=== PATIENT | male | born 1965 | race Caucasian/White ===

== ENCOUNTER 2017-03-23 14:55 | Emergency (ER) | payer MEDICAID ==
[~2017-03-23] VITALS: Ht 177.8 cm; Wt 81.6 kg
[~2017-03-23 14:55] MED LIST: AMI200T PO; ASPI81CH43 PO; BEN10T PO; BUME1TAB PO; CAR3125T PO; CLOP75TA28 PO; DIG0125T PO; GLIP-218 PO
[2017-03-23 15:44] LABS: Basophils # (auto) 0.1 uL; Basophils % (auto) 0.8 % (0.0-2.0); Eosinophils # (auto) 0.2 uL; Eosinophils % (auto) 1.8 % (0.0-7.0); Hematocrit 38.6 % (41.0-53.0); Hemoglobin 12.9 g/dL (13.5-17.5); Lymphocytes # (auto) 1.7 uL; Mean Corpuscular Hemoglobin 31.6 pg (28.0-32.0); Mean Corpuscular Hgb Conc. 33.5 g/dL (32.0-36.0); Mean Corpuscular Volume 94.2 fL (80.0-100.0); Mean Platelet Volume 7.6 fL (6.9-10.8); Monocytes # (auto) 0.8 uL; Monocytes % (auto) 8.6 % (0.0-12.0); Neutrophils # (auto) 6.7 uL; Neutrophils % (auto) 70.8 % (37.0-80.0); Platelet Count (auto) 205 10^3/uL (140-450); Red Cell Distribution Width 13.7 % (11.8-14.3); White Blood Cell 9.4 10^3/uL (4.4-10.8)
[2017-03-23 16:06] LABS: Albumin 2.4 g/dL (3.4-5.0); BUN/Creatinine Ratio 26.6; Bilirubin, Total 0.7 mg/dL (0.2-1.0); Calcium 8.5 mg/dL (8.5-10.1); Magnesium 2.3 mg/dL (1.6-2.6); Potassium 4.9 mmol/L (3.5-5.1); Total Protein 6.3 g/dL (6.4-8.2)
[2017-03-23 17:30] VITALS: BP 137/77
[2017-03-23 18:11] LABS: Urine Bilirubin Negative (Negative); Urine Blood 1+ /uL (Negative); Urine Color Yellow (Yellow); Urine Glucose Normal (Normal); Urine Ketone Negative (Negative); Urine Nitrite Negative (Negative); Urine RBC 6 /hpf (0 - 3); Urine Squamous Epithelial Cell FEW /hpf (<5); Urine pH 6.5 (5.0-8.0)
== END 2017-03-23 17:42 | disposition home or self-care (01) ==
LOC: EDBD 14:55 → ER 15:05
DX: E43 Unspecified severe protein-calorie malnutrition (principal); B19.9 Unspecified viral hepatitis without hepatic coma; R33.9 Retention of urine, unspecified; I48.91 Unspecified atrial fibrillation; I25.10 Atherosclerotic heart disease of native coronary artery without angina pectoris; I11.0 Hypertensive heart disease with heart failure; I50.9 Heart failure, unspecified; E78.5 Hyperlipidemia, unspecified; E11.9 Type 2 diabetes mellitus without complications; I42.0 Dilated cardiomyopathy; F17.210 Nicotine dependence, cigarettes, uncomplicated; Z79.82 Long term (current) use of aspirin; Z98.61 Coronary angioplasty status
CPT/HCPCS: 36415; 51702; 71020; 74176; 80053; 81001; 83735; 84484; 85025; 93005

== ENCOUNTER 2017-03-25 10:47 | Inpatient (IN) | payer MEDICAID ==
[~2017-03-25] VITALS: Ht 182.9 cm; Wt 88.4 kg
[2017-03-25 11:18] LABS: Urine WBC None Seen /hpf (0 - 3)
[2017-03-25 11:25] LABS: Basophils # (auto) 0 uL; Basophils % (auto) 0.6 % (0.0-2.0); Eosinophils # (auto) 0 uL; Eosinophils % (auto) 0.7 % (0.0-7.0); Hematocrit 37.8 % (41.0-53.0); Hemoglobin 12.5 g/dL (13.5-17.5); Lymphocytes # (auto) 1.1 uL; Lymphocytes % (auto) 16.2 % (10.0-50.0); Mean Corpuscular Hemoglobin 31.3 pg (28.0-32.0); Mean Corpuscular Hgb Conc. 33.1 g/dL (32.0-36.0); Mean Corpuscular Volume 94.5 fL (80.0-100.0); Monocytes # (auto) 0.5 uL; Monocytes % (auto) 7.1 % (0.0-12.0); Neutrophils # (auto) 5.2 uL; Neutrophils % (auto) 75.4 % (37.0-80.0); Nucleated Red Blood Cells % 0.1 %; Platelet Count (auto) 236 10^3/uL (140-450); Red Cell Distribution Width 13.8 % (11.8-14.3); White Blood Cell 6.9 10^3/uL (4.4-10.8)
[2017-03-25 11:32] LABS: Urine Bacteria NONE SEEN /hpf (None Seen); Urine Blood 3+ /uL (Negative); Urine Mucus FEW (None Seen); Urine Specific Gravity 1.025 (1.001-1.035)
[2017-03-25 12:28] LABS: Albumin 2.3 g/dL (3.4-5.0); BUN/Creatinine Ratio 28.3; Bilirubin, Total 0.8 mg/dL (0.2-1.0); Calcium 8.1 mg/dL (8.5-10.1); Potassium 4.6 mmol/L (3.5-5.1); Total Protein 6.3 g/dL (6.4-8.2)
[2017-03-25] MEDS ORDERED: SODIUM CHLORIDE 0.9% 1,000 ML IV ONE (15:42)
[2017-03-25] MEDS ORDERED: MORPHINE SULFATE 10 MG/ML INJ 1ML SDV IV ONE (15:45)
[2017-03-25] MEDS ORDERED: FUROSEMIDE 20 MG/2 ML VIAL IV ONE (15:45)
[2017-03-25 16:57] LABS: INR 1.09 (0.9-1.15); Partial Thromboplastin Time 26.1 sec (22.64-33.71); Prothrombin Time 11.9 sec (9.37-12.3)
[2017-03-25] MEDS ORDERED: cefTRIAXone 1GM/50ML D5W 50 ML IV ONE ×2 (18:00→18:15)
[2017-03-25] MEDS ORDERED: ACETAMINOPHEN 500 MG TAB PO PRN (18:15)
[2017-03-25] MEDS ORDERED: NITROGLYCERIN 0.4 MG SL TAB SL PRN (18:15)
[2017-03-25] MEDS ORDERED: HYDROcodone-ACET 5/325MG TAB PO PRN (18:15)
[2017-03-25] MEDS ORDERED: PROMETHAZINE HCL 25 MG/ML 1ML IV PRN (18:15)
[2017-03-25] MEDS ORDERED: LORazepam 0.5 MG TAB PO PRN (18:15)
[2017-03-25] MEDS ORDERED: MORPHINE SULFATE 10 MG/ML INJ 1ML SDV IV PRN ×2 (18:15)
[2017-03-25] MEDS ORDERED: LACTULOSE 20Gm/30ML SOLN PO PRN (18:15)
[2017-03-25] MEDS: FUROSEMIDE 40 MG/4 ML VIAL IV SCH (18:22)
[2017-03-25] MEDS: glipiZIDE 5 MG TAB PO SCH (19:01)
[2017-03-25 20:30] VITALS: BP 135/87
[2017-03-25] MEDS: CARVEDILOL 3.125 MG TAB PO SCH (21:32)
[2017-03-25] MEDS: BENAZEPRIL HCL 10 MG TAB PO SCH (21:33)
[2017-03-25] MEDS: TEMAZEPAM 15 MG CAP PO PRN (21:34)
[2017-03-25] MEDS: AMIODARONE HCL 200 MG TAB PO SCH (21:34)
[2017-03-25] MEDS: SODIUM CHLOR 0.9% PF (SALINE LOCK) 10ML VIAL IV SCH (21:35)
[2017-03-25 22:00] VITALS: BP 135/87
[2017-03-26 04:54] VITALS: BP 105/68
[2017-03-26] MEDS: FUROSEMIDE 40 MG/4 ML VIAL IV SCH ×2 (05:34→17:53)
[2017-03-26] MEDS: SODIUM CHLOR 0.9% PF (SALINE LOCK) 10ML VIAL IV SCH ×3 (05:34→22:10)
[2017-03-26] MEDS: glipiZIDE 5 MG TAB PO SCH ×2 (06:58→17:00)
[2017-03-26 07:24] LABS: Basophils # (auto) 0 uL; Basophils % (auto) 0.5 % (0.0-2.0); Eosinophils # (auto) 0.2 uL; Eosinophils % (auto) 2.2 % (0.0-7.0); Hematocrit 37.8 % (41.0-53.0); Hemoglobin 12.7 g/dL (13.5-17.5); Lymphocytes # (auto) 1.7 uL; Lymphocytes % (auto) 21.2 % (10.0-50.0); Mean Corpuscular Hemoglobin 31.4 pg (28.0-32.0); Mean Corpuscular Hgb Conc. 33.5 g/dL (32.0-36.0); Mean Corpuscular Volume 93.7 fL (80.0-100.0); Monocytes # (auto) 0.8 uL; Monocytes % (auto) 9.4 % (0.0-12.0); Neutrophils # (auto) 5.4 uL; Neutrophils % (auto) 66.7 % (37.0-80.0); Nucleated Red Blood Cells % 0.1 %; Platelet Count (auto) 244 10^3/uL (140-450); Red Blood Cells 4.03 10^6/uL (4.5-5.90); Red Cell Distribution Width 13.8 % (11.8-14.3); White Blood Cell 8.1 10^3/uL (4.4-10.8)
[2017-03-26 07:35] LABS: Albumin 2.4 g/dL (3.4-5.0); BUN/Creatinine Ratio 25.3; Bilirubin, Total 0.7 mg/dL (0.2-1.0); Calcium 8.1 mg/dL (8.5-10.1); Potassium 4.5 mmol/L (3.5-5.1); Total Protein 6.2 g/dL (6.4-8.2)
[2017-03-26 08:00] VITALS: BP 92/66
[2017-03-26] MEDS: ENOXAPARIN SOD 40 MG/0.4 ML SYRINGE SC SCH (08:40)
[2017-03-26] MEDS: cefTRIAXone 1GM/50ML D5W 50 ML IV SCH (08:40)
[2017-03-26] MEDS: BUMETANIDE 1 MG TAB PO SCH (08:41)
[2017-03-26] MEDS: CLOPIDOGREL BISULFATE 75 MG TAB PO SCH (08:42)
[2017-03-26] MEDS: POTASSIUM CHL 20 Meq TABLET PO SCH (08:43)
[2017-03-26] MEDS: AMIODARONE HCL 200 MG TAB PO SCH ×2 (08:44→22:12)
[2017-03-26] MEDS: CARVEDILOL 3.125 MG TAB PO SCH ×2 (08:45→22:12)
[2017-03-26] MEDS: PANTOPRAZOLE 40 MG TAB PO SCH (08:46)
[2017-03-26] MEDS: ASPirin 81 mg TAB PO SCH (08:46)
[2017-03-26] MEDS: BENAZEPRIL HCL 10 MG TAB PO SCH ×2 (08:46→22:11)
[2017-03-26] MEDS ORDERED: DIGOXIN 0.125 MG TAB PO SCH (10:00)
[2017-03-26] MEDS ORDERED: NITROGLYCERIN 0.2MG/HR TOPICAL PATCH TD SCH (10:00)
[2017-03-26] MEDS ORDERED: MORPHINE SULFATE 10 MG/ML INJ 1ML SDV IV PRN (12:45)
[2017-03-26] MEDS ORDERED: DEXTROSE (50%) 50ML SYRG IV PRN (12:45)
[2017-03-26 13:00] VITALS: BP 110/61
[2017-03-26 13:34] LABS: Alcohol, Urine < 3.0 mg/dL (0-5); Amphetamine Screen, Urine NEGATIVE (NEGATIVE); Barbiturate Scree,Urine NEGATIVE (NEGATIVE); Benzodiazephine Screen, Urine NEGATIVE (NEGATIVE); Cannabinoid Screen, Urine NEGATIVE (NEGATIVE); Cocaine Screen, Urine NEGATIVE (NEGATIVE); Opiate Scree,Urine NEGATIVE (NEGATIVE); Phencyclidine Screen, Urine NEGATIVE (NEGATIVE)
[2017-03-26 14:29] LABS: Hepatitis B Surface Antibody Negative
[2017-03-26 14:40] LABS: Hepatitis B Surface Antigen Negative (Negative)
[2017-03-26 15:07] LABS: Hepatitis C Antibody Negative (Negative)
[2017-03-26 15:08] LABS: Hepatitis A Total Antibody Negative; Hepatitis B Core Total AB Negative
[2017-03-26 17:00] VITALS: BP 111/73
[2017-03-26] MEDS: InsuLIN REG 1unit/0.01ml Soln (100units/ml) SC SCH ×2 (17:00→21:41)
[2017-03-26] MEDS: ACCU-CHEK COMFORT CURVE STRIP VI SCH ×2 (17:52→21:41)
[2017-03-26 20:00] VITALS: BP 100/64
[2017-03-26 21:30] VITALS: BP 100/64
[2017-03-26] MEDS: TEMAZEPAM 15 MG CAP PO PRN (22:11)
[2017-03-27 05:00] VITALS: BP 95/61
[2017-03-27 06:11] LABS: Basophils # (auto) 0.1 uL; Basophils % (auto) 0.7 % (0.0-2.0); Eosinophils # (auto) 0.2 uL; Eosinophils % (auto) 2.2 % (0.0-7.0); Hematocrit 37.7 % (41.0-53.0); Hemoglobin 12.6 g/dL (13.5-17.5); Lymphocytes # (auto) 1.6 uL; Lymphocytes % (auto) 21.2 % (10.0-50.0); Mean Corpuscular Hemoglobin 31.3 pg (28.0-32.0); Mean Corpuscular Hgb Conc. 33.3 g/dL (32.0-36.0); Mean Corpuscular Volume 93.8 fL (80.0-100.0); Monocytes # (auto) 0.8 uL; Monocytes % (auto) 10.5 % (0.0-12.0); Neutrophils % (auto) 65.4 % (37.0-80.0); Nucleated Red Blood Cells % 0.1 %; Platelet Count (auto) 272 10^3/uL (140-450); Red Blood Cells 4.02 10^6/uL (4.5-5.90); Red Cell Distribution Width 13.5 % (11.8-14.3); White Blood Cell 7.6 10^3/uL (4.4-10.8)
[2017-03-27 06:27] LABS: Albumin 2.1 g/dL (3.4-5.0); Magnesium 2.1 mg/dL (1.6-2.6); Potassium 4.1 mmol/L (3.5-5.1)
[2017-03-27 06:30] LABS: Bilirubin, Total 0.7 mg/dL (0.2-1.0); Total Protein 5.6 g/dL (6.4-8.2)
[2017-03-27] MEDS: SODIUM CHLOR 0.9% PF (SALINE LOCK) 10ML VIAL IV SCH ×2 (06:30→14:00)
[2017-03-27] MEDS: FUROSEMIDE 40 MG/4 ML VIAL IV SCH (06:30)
[2017-03-27] MEDS: glipiZIDE 5 MG TAB PO SCH (06:58)
[2017-03-27] MEDS: ACCU-CHEK COMFORT CURVE STRIP VI SCH ×2 (06:58→11:57)
[2017-03-27] MEDS: InsuLIN REG 1unit/0.01ml Soln (100units/ml) SC SCH ×2 (06:59→11:30)
[2017-03-27 08:00] VITALS: BP 112/80
[2017-03-27 08:12] VITALS: BP 112/80
[2017-03-27] MEDS: cefTRIAXone 1GM/50ML D5W 50 ML IV SCH (09:56)
[2017-03-27] MEDS: ENOXAPARIN SOD 40 MG/0.4 ML SYRINGE SC SCH (09:57)
[2017-03-27] MEDS ORDERED: DIGOXIN 0.25 MG TAB PO SCH (10:00)
[2017-03-27] MEDS: BUMETANIDE 1 MG TAB PO SCH (10:01)
[2017-03-27] MEDS: AMIODARONE HCL 200 MG TAB PO SCH (10:01)
[2017-03-27] MEDS: CARVEDILOL 3.125 MG TAB PO SCH (10:02)
[2017-03-27] MEDS: ASPirin 81 mg TAB PO SCH (10:02)
[2017-03-27] MEDS: CLOPIDOGREL BISULFATE 75 MG TAB PO SCH (10:02)
[2017-03-27] MEDS: PANTOPRAZOLE 40 MG TAB PO SCH (10:03)
[2017-03-27] MEDS: POTASSIUM CHL 20 Meq TABLET PO SCH (10:03)
[2017-03-27] MEDS: BENAZEPRIL HCL 10 MG TAB PO SCH (10:07)
[2017-03-27 12:34] VITALS: BP 114/84
[2017-03-27 12:36] VITALS: BP 110/85
== END 2017-03-27 17:02 | disposition home health service (06) | DRG 194 ==
LOC: ER 10:47 → TELE 10:48 → TELE-EAST 20:10
PROVIDERS: ADMIT Internal Medicine; ATTEND Internal Medicine
DX: I11.0 Hypertensive heart disease with heart failure (principal); E43 Unspecified severe protein-calorie malnutrition; D68.9 Coagulation defect, unspecified; I42.0 Dilated cardiomyopathy; I48.92 Unspecified atrial flutter; E11.9 Type 2 diabetes mellitus without complications; D64.9 Anemia, unspecified; I48.0 Paroxysmal atrial fibrillation; N39.0 Urinary tract infection, site not specified; I50.23 Acute on chronic systolic (congestive) heart failure; I42.7 Cardiomyopathy due to drug and external agent; I25.10 Atherosclerotic heart disease of native coronary artery without angina pectoris; E03.9 Hypothyroidism, unspecified; E78.5 Hyperlipidemia, unspecified; F41.9 Anxiety disorder, unspecified; G47.00 Insomnia, unspecified; T43.625A Adverse effect of amphetamines, initial encounter; F12.10 Cannabis abuse, uncomplicated; F15.10 Other stimulant abuse, uncomplicated; Z82.49 Family history of ischemic heart disease and other diseases of the circulatory system; Z87.891 Personal history of nicotine dependence; Z91.19 Patient's noncompliance with other medical treatment and regimen; Y92.89 Other specified places as the place of occurrence of the external cause; Z95.5 Presence of coronary angioplasty implant and graft; Z79.899 Other long term (current) drug therapy; Z68.26 Body mass index [BMI] 26.0-26.9, adult; Z95.810 Presence of automatic (implantable) cardiac defibrillator
CPT/HCPCS: 36415; 71020; 76705; 80053; 80061; 80162; 80307; 81001; 82550; 82962; 83735; 83880; 84443; 84484; 85025; 85610; 85730; 86704; 86706; 86708; 86803; 87081; 87086; 87340; 93005; 96361; 96365; 96366; J0696

== ENCOUNTER → 2017-04-22 | Outpatient (CLI) | payer MEDICAID ==
[~2017-04-22] VITALS: Ht 182.9 cm; Wt 88.5 kg
== END | disposition home or self-care (01) ==
LOC: Rad HDHVI 07:59
PROVIDERS: ATTEND Internal Medicine Cardiovascular Disease
DX: I50.23 Acute on chronic systolic (congestive) heart failure (principal); I25.5 Ischemic cardiomyopathy
CPT/HCPCS: 78452; 93017; 96374; A9500

== ENCOUNTER → 2018-08-05 | Outpatient (CLI) | payer MEDICAID | END | disposition home or self-care (01) | LOC: Rad HDHVI 10:05 | PROVIDERS: ATTEND Internal Medicine | DX: I07.1 Rheumatic tricuspid insufficiency (principal); I42.9 Cardiomyopathy, unspecified; I50.9 Heart failure, unspecified; I25.5 Ischemic cardiomyopathy | CPT/HCPCS: 93306 ==

== ENCOUNTER → 2021-10-23 | Emergency (ER) | payer MEDICAID, OTHER ==
[~2021-10-23] VITALS: Ht 182.9 cm; Wt 89.8 kg
[~2021-10-23] MED LIST changes: -AMI200T PO; +AMIO200T4 PO; -BEN10T PO; +BENA10TA14 PO; -BUME1TAB PO; +BUME1TAB3 PO
[2021-10-23 12:21] VITALS: BP 148/106
== END | disposition home or self-care (01) ==
LOC: ER 12:18
DX: I11.0 Hypertensive heart disease with heart failure (principal); I50.9 Heart failure, unspecified; E78.5 Hyperlipidemia, unspecified; E11.9 Type 2 diabetes mellitus without complications; Z45.018 Encounter for adjustment and management of other part of cardiac pacemaker
CPT/HCPCS: 71046; 93005

== ENCOUNTER 2021-11-22 23:20 | Inpatient (IN) | payer MEDICAID ==
[~2021-11-22] VITALS: Ht 185.4 cm; Wt 60.6 kg
[2021-11-23] MEDS ORDERED: SODIUM CHLOR 0.9% PF (SALINE LOCK) 10ML VIAL/SYR IV ONE
[2021-11-23] MEDS ORDERED: ASPirin 81 mg TAB PO ONE
[2021-11-23] MEDS ORDERED: MORPHINE SULFATE INJ 2 MG/ml SYRG IV ONE
[2021-11-23 00:49] LABS: Basophils # (auto) 0.1 10 ^3/uL (0-0.2); Basophils % (auto) 1.9 % (0.0-2.0); Eosinophils # (auto) 0.1 10 ^3/uL (0-0.8); Eosinophils % (auto) 1.6 % (0.0-7.0); Hematocrit 39.7 % (41.0-53.0); Hemoglobin 13.5 g/dL (13.5-17.5); Lymphocytes # (auto) 1.2 10 ^3/uL (0.4-5.4); Lymphocytes % (auto) 19.1 % (10.0-50.0); Mean Corpuscular Hemoglobin 32.9 pg (28.0-32.0); Mean Corpuscular Volume 96.8 fL (80.0-100.0); Monocytes # (auto) 0.4 10 ^3/uL (0-1.3); Monocytes % (auto) 6.1 % (0.0-12.0); Neutrophils # (auto) 4.5 10 ^3/uL (1.6-8.6); Neutrophils % (auto) 71.3 % (37.0-80.0); Nucleated Red Blood Cells % 0.1 %; Red Cell Distribution Width 14.5 % (11.8-14.3); White Blood Cell 6.3 10^3/uL (4.4-10.8)
[2021-11-23 01:07] LABS: Albumin 3.6 g/dL (3.4-5.0); Calcium 8.4 mg/dL (8.5-10.1)
[2021-11-23 01:09] LABS: Bilirubin, Total 0.5 mg/dL (0.2-1.0)
[2021-11-23] MEDS ORDERED: FUROSEMIDE 40 MG/4 ML VIAL IV ONE (01:45)
[2021-11-23] MEDS ORDERED: ACETAMINOPHEN 325 MG TAB PO PRN (02:00)
[2021-11-23] MEDS ORDERED: ONDANSETRON HCL 4 MG/2 ML VIAL IV PRN (02:00)
[2021-11-23] MEDS ORDERED: LORazepam 0.5 MG TAB PO PRN (02:00)
[2021-11-23] MEDS ORDERED: MORPHINE SULFATE INJ 2 MG/ml SYRG IV PRN (02:00)
[2021-11-23] MEDS ORDERED: NITROGLYCERIN 0.4 MG SL TAB SL PRN (02:00)
[2021-11-23] MEDS ORDERED: ZOLPIDEM TARTRATE 5 MG TAB PO PRN (02:00)
[2021-11-23 03:58] LABS: Urine Bacteria NONE SEEN /hpf (None Seen); Urine Blood Negative /uL (Negative); Urine Specific Gravity 1.009 (1.001-1.035); Urine WBC <1 /hpf (0 - 3)
[2021-11-23 06:04] LABS: Basophils # (auto) 0.1 10 ^3/uL (0-0.2); Basophils % (auto) 0.9 % (0.0-2.0); Eosinophils # (auto) 0.1 10 ^3/uL (0-0.8); Eosinophils % (auto) 1.5 % (0.0-7.0); Hematocrit 41.5 % (41.0-53.0); Hemoglobin 13.8 g/dL (13.5-17.5); Lymphocytes # (auto) 1.1 10 ^3/uL (0.4-5.4); Mean Corpuscular Hemoglobin 31.7 pg (28.0-32.0); Mean Corpuscular Hgb Conc. 33.2 g/dL (32.0-36.0); Mean Corpuscular Volume 95.5 fL (80.0-100.0); Monocytes # (auto) 0.4 10 ^3/uL (0-1.3); Monocytes % (auto) 6.2 % (0.0-12.0); Neutrophils # (auto) 4.4 10 ^3/uL (1.6-8.6); Neutrophils % (auto) 72.4 % (37.0-80.0); Nucleated Red Blood Cells % 0.1 %; Red Blood Cells 4.34 10^6/uL (4.5-5.90); Red Cell Distribution Width 14.2 % (11.8-14.3)
[2021-11-23 06:26] LABS: Potassium 3.6 mmol/L (3.5-5.1)
[2021-11-23 06:33] LABS: BUN/Creatinine Ratio 16.8; Calcium 8.8 mg/dL (8.5-10.1); Magnesium 1.9 mg/dL (1.6-2.6)
[2021-11-23] MEDS: ASPirin 81 mg TAB PO SCH (10:48)
[2021-11-23] MEDS: DOCUSATE SOD 100 MG CAP PO SCH (10:48)
[2021-11-23] MEDS: AMIODARONE HCL 200 MG TAB PO SCH ×2 (10:48→22:13)
[2021-11-23] MEDS: CARVEDILOL 3.125 MG TAB PO SCH ×2 (10:48→22:12)
[2021-11-23] MEDS: BUMETANIDE 1 MG TAB PO SCH (10:48)
[2021-11-23] MEDS: DIGOXIN 0.125 MG TAB PO SCH (10:49)
[2021-11-23] MEDS: CLOPIDOGREL BISULFATE 75 MG TAB PO SCH (10:49)
[2021-11-23] MEDS: BENAZEPRIL HCL 10 MG TAB PO SCH ×2 (10:49→22:13)
[2021-11-23] MEDS: ENOXAPARIN SOD 80 MG/0.8ML SYRINGE SC SCH ×2 (10:49→22:14)
[2021-11-23 22:00] VITALS: BP 145/68
[2021-11-23] MEDS: ATORVASTATIN 20 MG TAB PO SCH (22:11)
[2021-11-24 05:00] VITALS: BP 123/82
[2021-11-24 08:00] VITALS: BP 116/83
[2021-11-24] MEDS: ASPirin 81 mg TAB PO SCH (09:49)
[2021-11-24] MEDS: CARVEDILOL 3.125 MG TAB PO SCH ×2 (09:50→21:30)
[2021-11-24] MEDS: BUMETANIDE 1 MG TAB PO SCH (09:50)
[2021-11-24] MEDS: AMIODARONE HCL 200 MG TAB PO SCH ×2 (09:51→21:30)
[2021-11-24] MEDS: BENAZEPRIL HCL 10 MG TAB PO SCH ×2 (09:51→21:30)
[2021-11-24] MEDS: ENOXAPARIN SOD 80 MG/0.8ML SYRINGE SC SCH ×2 (09:51→21:31)
[2021-11-24] MEDS: DOCUSATE SOD 100 MG CAP PO SCH (09:51)
[2021-11-24] MEDS: DIGOXIN 0.125 MG TAB PO SCH (09:51)
[2021-11-24] MEDS: CLOPIDOGREL BISULFATE 75 MG TAB PO SCH (09:51)
[2021-11-24] MEDS ORDERED: POTASSIUM EFFERVESENT TAB 25 MEQ PO ONE (13:45)
[2021-11-24] MEDS ORDERED: MAGNESIUM SULFATE 1GM/100ML 100 ML IV ONE (13:45)
[2021-11-24] MEDS ORDERED: DEXTROSE (50%) 50ML SYRG IV PRN (13:45)
[2021-11-24 14:30] VITALS: BP 120/79
[2021-11-24 15:00] LABS: Alcohol, Urine < 3.0 mg/dL (0-10); Amphetamine Screen, Urine POSITIVE (NEGATIVE); Barbiturate Scree,Urine NEGATIVE (NEGATIVE); Benzodiazephine Screen, Urine NEGATIVE (NEGATIVE); Cocaine Screen, Urine NEGATIVE (NEGATIVE)
[2021-11-24 15:07] LABS: Cannabinoid Screen, Urine POSITIVE (NEGATIVE); Opiate Scree,Urine NEGATIVE (NEGATIVE); Phencyclidine Screen, Urine NEGATIVE (NEGATIVE)
[2021-11-24 15:30] VITALS: BP 101/74
[2021-11-24] MEDS: ACCU-CHEK COMFORT CURVE STRIP VI SCH ×2 (17:00→21:31)
[2021-11-24] MEDS: InsuLIN REG 1unit/0.01ml Soln (100units/ml) SC SCH ×2 (17:20→21:32)
[2021-11-24] MEDS: BUMETANIDE 2.5mg/10ml (0.25 mg/ml) INJ IV SCH (17:39)
[2021-11-24] MEDS: ATORVASTATIN 20 MG TAB PO SCH (21:30)
[2021-11-24] MEDS: FAMOTIDINE 20 MG TAB PO SCH (21:31)
[2021-11-24 22:00] VITALS: BP 126/58
[2021-11-24 23:13] VITALS: BP 107/84
[2021-11-25] VITALS (7 sets, daily range): BP systolic 105–120; BP diastolic 69–84
[2021-11-25] MEDS: BUMETANIDE 2.5mg/10ml (0.25 mg/ml) INJ IV SCH ×2 (06:50→18:07)
[2021-11-25] MEDS: ACCU-CHEK COMFORT CURVE STRIP VI SCH ×4 (06:50→21:24)
[2021-11-25] MEDS: InsuLIN REG 1unit/0.01ml Soln (100units/ml) SC SCH ×4 (06:50→22:00)
[2021-11-25 07:22] LABS: Calcium 8.4 mg/dL (8.5-10.1); Potassium 3.7 mmol/L (3.5-5.1)
[2021-11-25 07:27] LABS: Albumin 3.2 g/dL (3.4-5.0); Bilirubin, Total 0.8 mg/dL (0.2-1.0); Magnesium 2.5 mg/dL (1.6-2.6); Total Protein 7.8 g/dL (6.4-8.2)
[2021-11-25] MEDS: ASPirin 81 mg TAB PO SCH (09:00)
[2021-11-25] MEDS: DIGOXIN 0.125 MG TAB PO SCH (09:01)
[2021-11-25] MEDS: DOCUSATE SOD 100 MG CAP PO SCH (09:01)
[2021-11-25] MEDS: AMIODARONE HCL 200 MG TAB PO SCH ×2 (09:01→21:23)
[2021-11-25] MEDS: CARVEDILOL 3.125 MG TAB PO SCH ×2 (09:01→21:05)
[2021-11-25] MEDS: BENAZEPRIL HCL 10 MG TAB PO SCH ×2 (09:01→21:05)
[2021-11-25] MEDS: CLOPIDOGREL BISULFATE 75 MG TAB PO SCH (09:02)
[2021-11-25] MEDS: ENOXAPARIN SOD 80 MG/0.8ML SYRINGE SC SCH ×2 (09:02→21:05)
[2021-11-25] MEDS: FAMOTIDINE 20 MG TAB PO SCH ×2 (09:02→21:23)
[2021-11-25] MEDS: MORPHINE SULFATE INJ 2 MG/ml SYRG IV PRN ×2 (12:02→21:26)
[2021-11-25] MEDS: ATORVASTATIN 20 MG TAB PO SCH (21:23)
[2021-11-26] VITALS (8 sets, daily range): BP systolic 111–128; BP diastolic 85–97
[2021-11-26] MEDS ORDERED: VANCOMYCIN 1GM/250ML 250 ML IV ONE ×2 (04:00→15:10)
[2021-11-26] MEDS: BUMETANIDE 2.5mg/10ml (0.25 mg/ml) INJ IV SCH ×2 (06:28→18:42)
[2021-11-26 06:29] LABS: BUN/Creatinine Ratio 27.4; Calcium 9.2 mg/dL (8.5-10.1)
[2021-11-26] MEDS: ACCU-CHEK COMFORT CURVE STRIP VI SCH ×4 (06:34→22:08)
[2021-11-26] MEDS: InsuLIN REG 1unit/0.01ml Soln (100units/ml) SC SCH ×4 (06:34→22:21)
[2021-11-26] MEDS: ASPirin 81 mg TAB PO SCH (09:35)
[2021-11-26] MEDS: FAMOTIDINE 20 MG TAB PO SCH ×2 (09:36→22:08)
[2021-11-26] MEDS: DOCUSATE SOD 100 MG CAP PO SCH (09:36)
[2021-11-26] MEDS: CLOPIDOGREL BISULFATE 75 MG TAB PO SCH (09:36)
[2021-11-26] MEDS: AMIODARONE HCL 200 MG TAB PO SCH ×2 (09:36→22:05)
[2021-11-26] MEDS: DIGOXIN 0.125 MG TAB PO SCH (09:36)
[2021-11-26] MEDS: ENOXAPARIN SOD 80 MG/0.8ML SYRINGE SC SCH ×2 (09:36→22:24)
[2021-11-26] MEDS: BENAZEPRIL HCL 10 MG TAB PO SCH ×2 (09:36→22:08)
[2021-11-26] MEDS: CARVEDILOL 3.125 MG TAB PO SCH ×2 (09:36→22:06)
[2021-11-26] MEDS ORDERED: VANCOMYCIN HCL 1000 MG VL ONE (15:10)
[2021-11-26] MEDS ORDERED: MIDAZOLAM HCL 2MG/2ML 2ml VIAL (1mg/ml) ONE (15:10)
[2021-11-26] MEDS ORDERED: fentaNYL CITRATE 100 MCG/2 ML VL ONE (15:10)
[2021-11-26] MEDS ORDERED: LIDOCAINE 2%HCL (LOCAL ANESTH.) INJ 10ml MDV ONE ×2 (15:11→15:12)
[2021-11-26] MEDS: ATORVASTATIN 20 MG TAB PO SCH (22:06)
[2021-11-27 05:00] VITALS: BP 109/77
[2021-11-27 05:08] LABS: Basophils # (auto) 0.1 10 ^3/uL (0-0.2); Eosinophils # (auto) 0.1 10 ^3/uL (0-0.8); Eosinophils % (auto) 1.1 % (0.0-7.0); Hematocrit 38.6 % (41.0-53.0); Hemoglobin 13.2 g/dL (13.5-17.5); Lymphocytes # (auto) 1.2 10 ^3/uL (0.4-5.4); Lymphocytes % (auto) 18.5 % (10.0-50.0); Mean Corpuscular Hemoglobin 32.5 pg (28.0-32.0); Mean Corpuscular Hgb Conc. 34.2 g/dL (32.0-36.0); Mean Corpuscular Volume 95.1 fL (80.0-100.0); Monocytes # (auto) 0.6 10 ^3/uL (0-1.3); Monocytes % (auto) 8.8 % (0.0-12.0); Neutrophils # (auto) 4.6 10 ^3/uL (1.6-8.6); Neutrophils % (auto) 70.6 % (37.0-80.0); Nucleated Red Blood Cells % 0.1 %; Red Blood Cells 4.05 10^6/uL (4.5-5.90); Red Cell Distribution Width 14.1 % (11.8-14.3); White Blood Cell 6.5 10^3/uL (4.4-10.8)
[2021-11-27 05:26] LABS: BUN/Creatinine Ratio 25.5; Calcium 8.6 mg/dL (8.5-10.1); Magnesium 2.1 mg/dL (1.6-2.6); Potassium 3.6 mmol/L (3.5-5.1)
[2021-11-27] MEDS: ACCU-CHEK COMFORT CURVE STRIP VI SCH (06:32)
[2021-11-27] MEDS: InsuLIN REG 1unit/0.01ml Soln (100units/ml) SC SCH (06:36)
[2021-11-27] MEDS: BUMETANIDE 2.5mg/10ml (0.25 mg/ml) INJ IV SCH (06:48)
[2021-11-27 08:00] VITALS: BP 111/70
[2021-11-27] MEDS: CLOPIDOGREL BISULFATE 75 MG TAB PO SCH (09:17)
[2021-11-27] MEDS: CARVEDILOL 3.125 MG TAB PO SCH (09:17)
[2021-11-27] MEDS: ASPirin 81 mg TAB PO SCH (09:18)
[2021-11-27] MEDS: DOCUSATE SOD 100 MG CAP PO SCH (09:18)
[2021-11-27] MEDS: FAMOTIDINE 20 MG TAB PO SCH (09:18)
[2021-11-27] MEDS: DIGOXIN 0.125 MG TAB PO SCH (09:18)
[2021-11-27] MEDS: BENAZEPRIL HCL 10 MG TAB PO SCH (09:18)
[2021-11-27] MEDS: AMIODARONE HCL 200 MG TAB PO SCH (09:19)
[2021-11-27 09:34] VITALS: BP 111/70
[2021-11-27] MEDS ORDERED: CLOP75TA28 PO (10:56)
[2021-11-27] MEDS ORDERED: ATOR20TA PO (10:57)
[2021-11-27 11:23] VITALS: BP 111/70
== END 2021-11-27 12:16 | disposition home or self-care (01) | DRG 176 ==
LOC: ER 23:20 → TELE 11-23 01:54 → TELE-WESTW 11-23 20:27
PROVIDERS: ADMIT Hospitalist; ATTEND Internal Medicine
PROC: 0JPT0PZ Removal of Cardiac Rhythm Related Device from Trunk Subcutaneous Tissue and Fascia, Open Approach (ICD-10-PCS; principal; 2021-11-26)
PROC: 0JH609Z Insertion of Cardiac Resynchronization Defibrillator Pulse Generator into Chest Subcutaneous Tissue and Fascia, Open Approach (ICD-10-PCS; 2021-11-26)
DX: I13.0 Hypertensive heart and chronic kidney disease with heart failure and stage 1 through stage 4 chronic kidney disease, or unspecified chronic kidney disease (principal); I42.0 Dilated cardiomyopathy; E11.22 Type 2 diabetes mellitus with diabetic chronic kidney disease; I50.23 Acute on chronic systolic (congestive) heart failure; I25.10 Atherosclerotic heart disease of native coronary artery without angina pectoris; J44.9 Chronic obstructive pulmonary disease, unspecified; F17.210 Nicotine dependence, cigarettes, uncomplicated; F41.9 Anxiety disorder, unspecified; N18.9 Chronic kidney disease, unspecified; Z20.822 Contact with and (suspected) exposure to COVID-19; I48.0 Paroxysmal atrial fibrillation; E78.5 Hyperlipidemia, unspecified; F19.10 Other psychoactive substance abuse, uncomplicated; Z91.19 Patient's noncompliance with other medical treatment and regimen; Z82.49 Family history of ischemic heart disease and other diseases of the circulatory system; Z95.810 Presence of automatic (implantable) cardiac defibrillator
CPT/HCPCS: 36415; 80048; 80053; 80061; 80162; 80307; 81001; 82962; 83036; 83735; 83880; 84484; 85025; 93005; 93306; 96374; 96375; 99152; C1882; G0378; J1815; J2001; J2250

== ENCOUNTER 2021-11-29 22:09 | Inpatient (IN) | payer MEDICAID ==
[~2021-11-29] VITALS: Ht 182.9 cm; Wt 87.5 kg
[~2021-11-29 22:09] MED LIST changes: +ATOR20TA PO
[2021-11-29 23:26] LABS: Basophils # (auto) 0.1 10 ^3/uL (0-0.2); Basophils % (auto) 0.9 % (0.0-2.0); Eosinophils # (auto) 0.1 10 ^3/uL (0-0.8); Eosinophils % (auto) 1.1 % (0.0-7.0); Hematocrit 39.4 % (41.0-53.0); Hemoglobin 13.1 g/dL (13.5-17.5); Lymphocytes # (auto) 1.4 10 ^3/uL (0.4-5.4); Lymphocytes % (auto) 25.1 % (10.0-50.0); Mean Corpuscular Hemoglobin 31.8 pg (28.0-32.0); Mean Corpuscular Hgb Conc. 33.4 g/dL (32.0-36.0); Mean Corpuscular Volume 95.4 fL (80.0-100.0); Monocytes # (auto) 0.5 10 ^3/uL (0-1.3); Monocytes % (auto) 8.2 % (0.0-12.0); Neutrophils # (auto) 3.7 10 ^3/uL (1.6-8.6); Neutrophils % (auto) 64.7 % (37.0-80.0); Nucleated Red Blood Cells % 0.1 %; Red Blood Cells 4.13 10^6/uL (4.5-5.90); Red Cell Distribution Width 14.3 % (11.8-14.3); White Blood Cell 5.6 10^3/uL (4.4-10.8)
[2021-11-29 23:41] LABS: Albumin 3.5 g/dL (3.4-5.0); Calcium 8.7 mg/dL (8.5-10.1); Magnesium 2.4 mg/dL (1.6-2.6); Potassium 4.1 mmol/L (3.5-5.1)
[2021-11-29 23:44] LABS: BUN/Creatinine Ratio 22.9; Bilirubin, Total 0.7 mg/dL (0.2-1.0); Total Protein 7.9 g/dL (6.4-8.2)
[2021-11-30] MEDS ORDERED: FUROSEMIDE 40 MG/4 ML VIAL IV ONE (01:30)
[2021-11-30] MEDS: DIGOXIN 0.125 MG TAB PO SCH (11:21)
[2021-11-30] MEDS: CARVEDILOL 3.125 MG TAB PO SCH ×2 (11:25→22:43)
[2021-11-30] MEDS: AMIODARONE HCL 200 MG TAB PO SCH (11:26)
[2021-11-30] MEDS: ASPirin 81 mg TAB PO SCH (11:26)
[2021-11-30] MEDS: CLOPIDOGREL BISULFATE 75 MG TAB PO SCH (11:26)
[2021-11-30] MEDS ORDERED: ONDANSETRON HCL 4 MG/2 ML VIAL IV PRN (13:15)
[2021-11-30] MEDS ORDERED: ACETAMINOPHEN 325 MG TAB PO PRN (13:15)
[2021-11-30] MEDS ORDERED: DOCUSATE SOD 100 MG CAP PO PRN (13:15)
[2021-11-30] MEDS ORDERED: HYDROcodone-ACET 5/325MG TAB PO PRN (13:15)
[2021-11-30] MEDS ORDERED: NITROGLYCERIN 0.4 MG SL TAB SL PRN (13:15)
[2021-11-30] MEDS ORDERED: MORPHINE SULFATE INJ 2 MG/ml SYRG IV PRN (13:15)
[2021-11-30] MEDS: SODIUM CHLOR 0.9% PF (SALINE LOCK) 10ML VIAL/SYR IV SCH ×2 (14:04→22:42)
[2021-11-30] MEDS: FUROSEMIDE 40 MG/4 ML VIAL IV SCH (22:42)
[2021-11-30] MEDS: BENAZEPRIL HCL 10 MG TAB PO SCH (22:44)
[2021-11-30 23:44] VITALS: BP 129/91
[2021-12-01 05:00] VITALS: BP 103/80
[2021-12-01] MEDS: SODIUM CHLOR 0.9% PF (SALINE LOCK) 10ML VIAL/SYR IV SCH (05:40)
[2021-12-01 08:09] VITALS: BP 118/79
[2021-12-01] MEDS: ASPirin 81 mg TAB PO SCH (09:23)
[2021-12-01] MEDS: AMIODARONE HCL 200 MG TAB PO SCH (09:23)
[2021-12-01] MEDS: CLOPIDOGREL BISULFATE 75 MG TAB PO SCH (09:23)
[2021-12-01] MEDS: FUROSEMIDE 40 MG/4 ML VIAL IV SCH (09:23)
[2021-12-01] MEDS: CARVEDILOL 3.125 MG TAB PO SCH (09:24)
[2021-12-01] MEDS: BENAZEPRIL HCL 10 MG TAB PO SCH (09:24)
[2021-12-01] MEDS: DIGOXIN 0.125 MG TAB PO SCH (09:24)
[2021-12-01] MEDS ORDERED: ATORVASTATIN 20 MG TAB PO SCH (10:00)
[2021-12-01] MEDS ORDERED: DAPA1TAB4 PO (10:46)
[2021-12-01] MEDS ORDERED: BUME1TAB3 PO (10:46)
[2021-12-01 11:44] VITALS: BP 118/79
[2021-12-01 12:48] VITALS: BP 93/63
== END 2021-12-01 12:58 | disposition home or self-care (01) | DRG 194 ==
LOC: ER 22:09 → TELE 11-30 13:20 → TELE-WESTW 11-30 21:26
PROVIDERS: ADMIT Internal Medicine; ATTEND Internal Medicine
DX: I11.0 Hypertensive heart disease with heart failure (principal); I42.0 Dilated cardiomyopathy; E11.42 Type 2 diabetes mellitus with diabetic polyneuropathy; E03.9 Hypothyroidism, unspecified; I48.91 Unspecified atrial fibrillation; E78.5 Hyperlipidemia, unspecified; I50.23 Acute on chronic systolic (congestive) heart failure; F15.10 Other stimulant abuse, uncomplicated; F17.210 Nicotine dependence, cigarettes, uncomplicated; I25.10 Atherosclerotic heart disease of native coronary artery without angina pectoris; I34.0 Nonrheumatic mitral (valve) insufficiency; J44.9 Chronic obstructive pulmonary disease, unspecified; R09.89 Other specified symptoms and signs involving the circulatory and respiratory systems; R79.89 Other specified abnormal findings of blood chemistry; Z20.822 Contact with and (suspected) exposure to COVID-19; Z82.49 Family history of ischemic heart disease and other diseases of the circulatory system; Z98.61 Coronary angioplasty status
CPT/HCPCS: 36415; 71045; 80053; 80162; 83735; 83880; 84439; 84443; 84484; 85025; 93005; 96374; 96375; G0378

== ENCOUNTER 2021-12-09 13:12 | Emergency (ER) | payer MEDICAID ==
[~2021-12-09 13:12] MED LIST changes: +DAPA1TAB4 PO; -GLIP-218 PO
[2021-12-09] MEDS ORDERED: SODIUM CHLORIDE 0.9% 1,000 ML IV ONE ×2 (13:30)
[2021-12-09 14:27] LABS: Basophils # (auto) 0 10 ^3/uL (0-0.2); Basophils % (auto) 0.5 % (0.0-2.0); Eosinophils # (auto) 0 10 ^3/uL (0-0.8); Eosinophils % (auto) 0.5 % (0.0-7.0); Hematocrit 38.6 % (41.0-53.0); Hemoglobin 13.1 g/dL (13.5-17.5); Lymphocytes # (auto) 1.2 10 ^3/uL (0.4-5.4); Lymphocytes % (auto) 20.4 % (10.0-50.0); Mean Corpuscular Hemoglobin 32.2 pg (28.0-32.0); Mean Corpuscular Hgb Conc. 33.8 g/dL (32.0-36.0); Mean Corpuscular Volume 95.3 fL (80.0-100.0); Monocytes # (auto) 0.7 10 ^3/uL (0-1.3); Monocytes % (auto) 11.5 % (0.0-12.0); Neutrophils % (auto) 67.1 % (37.0-80.0); Nucleated Red Blood Cells % 0.2 %; Red Blood Cells 4.05 10^6/uL (4.5-5.90); Red Cell Distribution Width 14.5 % (11.8-14.3); White Blood Cell 5.9 10^3/uL (4.4-10.8)
[2021-12-09 14:46] LABS: Albumin 3.3 g/dL (3.4-5.0); BUN/Creatinine Ratio 26.4; Calcium 7.8 mg/dL (8.5-10.1); Magnesium 2.3 mg/dL (1.6-2.6); Potassium 3.5 mmol/L (3.5-5.1)
[2021-12-09 14:49] LABS: Bilirubin, Total 0.8 mg/dL (0.2-1.0); Total Protein 6.9 g/dL (6.4-8.2)
[2021-12-09 16:40] LABS: Urine Bacteria NONE SEEN /hpf (None Seen); Urine Blood Negative /uL (Negative); Urine Hyaline Cast FEW /lpf (0 - 2); Urine Mucus FEW (None Seen); Urine Specific Gravity 1.014 (1.001-1.035); Urine WBC 2 /hpf (0 - 3)
[2021-12-09 17:45] VITALS: BP 106/78
[2021-12-09] MEDS ORDERED: FUROSEMIDE 40 MG/4 ML VIAL IV ONE (17:45)
== END 2021-12-09 19:39 | disposition home or self-care (01) ==
LOC: EDBD 13:12 → ER 13:12
DX: I11.0 Hypertensive heart disease with heart failure (principal); I50.9 Heart failure, unspecified; E86.0 Dehydration; R41.82 Altered mental status, unspecified; F17.210 Nicotine dependence, cigarettes, uncomplicated; E11.9 Type 2 diabetes mellitus without complications; E78.5 Hyperlipidemia, unspecified; Z20.822 Contact with and (suspected) exposure to COVID-19
CPT/HCPCS: 36415; 36600; 71045; 80053; 81001; 82010; 82805; 83735; 84484; 85025; 87426; 93005; 96361; 96374; 99285; J1940; J7030

== ENCOUNTER 2021-12-10 05:55 | Inpatient (IN) | payer MEDICAID ==
[~2021-12-10] VITALS: Ht 182.9 cm; Wt 77.4 kg
[2021-12-10 06:40] LABS: Basophils # (auto) 0 10 ^3/uL (0-0.2); Basophils % (auto) 0.6 % (0.0-2.0); Eosinophils # (auto) 0 10 ^3/uL (0-0.8); Eosinophils % (auto) 0.3 % (0.0-7.0); Hemoglobin 13.9 g/dL (13.5-17.5); Lymphocytes # (auto) 1.5 10 ^3/uL (0.4-5.4); Lymphocytes % (auto) 20.3 % (10.0-50.0); Mean Corpuscular Hemoglobin 32.2 pg (28.0-32.0); Mean Corpuscular Hgb Conc. 33.8 g/dL (32.0-36.0); Mean Corpuscular Volume 95.3 fL (80.0-100.0); Monocytes # (auto) 0.8 10 ^3/uL (0-1.3); Monocytes % (auto) 10.6 % (0.0-12.0); Neutrophils # (auto) 4.9 10 ^3/uL (1.6-8.6); Neutrophils % (auto) 68.2 % (37.0-80.0); Nucleated Red Blood Cells % 0.3 %; Red Cell Distribution Width 14.5 % (11.8-14.3); White Blood Cell 7.2 10^3/uL (4.4-10.8)
[2021-12-10 07:00] LABS: Albumin 3.5 g/dL (3.4-5.0); BUN/Creatinine Ratio 22.4; Calcium 8.3 mg/dL (8.5-10.1)
[2021-12-10] MEDS ORDERED: ONDANSETRON HCL 4 MG/2 ML VIAL IV ONE (07:00)
[2021-12-10] MEDS ORDERED: MORPHINE SULFATE 4 MG/ML SYR/VIAL IV ONE (07:00)
[2021-12-10 07:02] LABS: Bilirubin, Total 1.2 mg/dL (0.2-1.0); Total Protein 7.4 g/dL (6.4-8.2)
[2021-12-10] MEDS ORDERED: VANCOMYCIN PER PHARMACY 0 MG IV SCH (10:45)
[2021-12-10] MEDS ORDERED: PIPERACILLIN-TAZO 4.5GM 100 ML IV SCH (11:00)
[2021-12-10] MEDS ORDERED: ONDANSETRON HCL 4 MG/2 ML VIAL IV PRN (13:15)
[2021-12-10] MEDS ORDERED: HYDROmorphone HCL 2 MG/ML VL/or syr IV PRN (13:15)
[2021-12-10] MEDS ORDERED: DOCUSATE SOD 100 MG CAP PO PRN (13:15)
[2021-12-10] MEDS ORDERED: DEXTROSE (50%) 50ML SYRG IV PRN (13:15)
[2021-12-10] MEDS ORDERED: ACETAMINOPHEN 325 MG TAB PO PRN (13:15)
[2021-12-10] MEDS ORDERED: VANCOMYCIN 1GM/250ML 250 ML IV SCH (14:00)
[2021-12-10] MEDS: SODIUM CHLOR 0.9% PF (SALINE LOCK) 10ML VIAL/SYR IV SCH ×2 (14:13→21:39)
[2021-12-10 14:31] LABS: Urine Bacteria FEW /hpf (None Seen); Urine Blood Negative /uL (Negative); Urine Mucus FEW (None Seen); Urine Specific Gravity 1.025 (1.001-1.035); Urine WBC 1 /hpf (0 - 3)
[2021-12-10 14:35] LABS: Barbiturate Scree,Urine NEGATIVE (NEGATIVE); Benzodiazephine Screen, Urine NEGATIVE (NEGATIVE); Cocaine Screen, Urine NEGATIVE (NEGATIVE); Opiate Scree,Urine POSITIVE (NEGATIVE); Phencyclidine Screen, Urine NEGATIVE (NEGATIVE)
[2021-12-10 14:45] LABS: Amphetamine Screen, Urine NEGATIVE (NEGATIVE); Cannabinoid Screen, Urine POSITIVE (NEGATIVE)
[2021-12-10 17:09] VITALS: BP 113/86
[2021-12-10] MEDS: PIPERACILLIN-TAZO 4.5GM 100 ML IV SCH (17:30)
[2021-12-10] MEDS: InsuLIN REG 1unit/0.01ml Soln (100units/ml) SC SCH (17:31)
[2021-12-10] MEDS: ACCU-CHEK COMFORT CURVE STRIP VI SCH (17:31)
[2021-12-10 17:41] VITALS: BP 113/86
[2021-12-10 21:20] VITALS: BP 116/84
[2021-12-10] MEDS: AMIODARONE HCL 200 MG TAB PO SCH (21:37)
[2021-12-10] MEDS: FUROSEMIDE 40 MG/4 ML VIAL IV SCH (21:39)
[2021-12-10] MEDS: CARVEDILOL 3.125 MG TAB PO SCH (21:39)
[2021-12-10] MEDS: BENAZEPRIL HCL 10 MG TAB PO SCH (21:42)
[2021-12-11] MEDS: ACCU-CHEK COMFORT CURVE STRIP VI SCH ×5 (00:20→23:10)
[2021-12-11] MEDS: PIPERACILLIN-TAZO 4.5GM 100 ML IV SCH ×3 (02:12→18:04)
[2021-12-11 05:00] VITALS: BP 103/81
[2021-12-11 05:50] LABS: Calcium 7.9 mg/dL (8.5-10.1); Potassium 3.6 mmol/L (3.5-5.1)
[2021-12-11 05:53] LABS: Bilirubin, Total 1.9 mg/dL (0.2-1.0); Total Protein 6.3 g/dL (6.4-8.2)
[2021-12-11] MEDS: InsuLIN REG 1unit/0.01ml Soln (100units/ml) SC SCH ×5 (06:00→23:10)
[2021-12-11] MEDS: SODIUM CHLOR 0.9% PF (SALINE LOCK) 10ML VIAL/SYR IV SCH ×3 (06:00→22:00)
[2021-12-11 07:45] VITALS: BP 108/74
[2021-12-11 08:05] VITALS: BP 108/74
[2021-12-11] MEDS: FUROSEMIDE 40 MG/4 ML VIAL IV SCH ×2 (09:58→22:00)
[2021-12-11] MEDS: AMIODARONE HCL 200 MG TAB PO SCH ×2 (09:58→22:00)
[2021-12-11] MEDS: CARVEDILOL 3.125 MG TAB PO SCH ×2 (09:59→22:00)
[2021-12-11] MEDS ORDERED: BUMETANIDE 1 MG TAB PO SCH (10:00)
[2021-12-11] MEDS: BENAZEPRIL HCL 10 MG TAB PO SCH ×2 (10:01→22:00)
[2021-12-11] MEDS: HYDROcodone-ACET 5/325MG TAB PO PRN (10:02)
[2021-12-11] MEDS ORDERED: D5W/LACTATED RINGERS 1,000 ML IV ONE (11:15)
[2021-12-11] MEDS ORDERED: D5W/LACTATED RINGERS 1,000 ML IV SCH (11:15)
[2021-12-11 12:05] VITALS: BP 95/69
[2021-12-11 16:15] VITALS: BP 88/66
[2021-12-11] MEDS ORDERED: ATORVASTATIN 20 MG TAB PO SCH (22:00)
[2021-12-11 22:11] VITALS: BP 90/66
[2021-12-12] VITALS (8 sets, daily range): BP systolic 81–108; BP diastolic 54–74
[2021-12-12] MEDS: PIPERACILLIN-TAZO 4.5GM 100 ML IV SCH ×3 (01:27→20:15)
[2021-12-12] MEDS: SODIUM CHLOR 0.9% PF (SALINE LOCK) 10ML VIAL/SYR IV SCH ×3 (05:31→21:48)
[2021-12-12] MEDS: ACCU-CHEK COMFORT CURVE STRIP VI SCH ×4 (05:31→22:16)
[2021-12-12] MEDS: InsuLIN REG 1unit/0.01ml Soln (100units/ml) SC SCH ×4 (05:31→22:24)
[2021-12-12 06:33] LABS: Basophils # (auto) 0.1 10 ^3/uL (0-0.2); Basophils % (auto) 0.8 % (0.0-2.0); Eosinophils # (auto) 0 10 ^3/uL (0-0.8); Eosinophils % (auto) 0.5 % (0.0-7.0); Hematocrit 39.5 % (41.0-53.0); Hemoglobin 13.3 g/dL (13.5-17.5); Lymphocytes # (auto) 1.6 10 ^3/uL (0.4-5.4); Lymphocytes % (auto) 22.9 % (10.0-50.0); Mean Corpuscular Hemoglobin 32.4 pg (28.0-32.0); Mean Corpuscular Hgb Conc. 33.8 g/dL (32.0-36.0); Monocytes # (auto) 0.9 10 ^3/uL (0-1.3); Monocytes % (auto) 12.4 % (0.0-12.0); Neutrophils # (auto) 4.4 10 ^3/uL (1.6-8.6); Neutrophils % (auto) 63.4 % (37.0-80.0); Nucleated Red Blood Cells % 0.1 %; Red Blood Cells 4.11 10^6/uL (4.5-5.90); Red Cell Distribution Width 14.8 % (11.8-14.3); White Blood Cell 6.9 10^3/uL (4.4-10.8)
[2021-12-12] MEDS: CARVEDILOL 3.125 MG TAB PO SCH (10:00)
[2021-12-12] MEDS: BENAZEPRIL HCL 10 MG TAB PO SCH (10:00)
[2021-12-12] MEDS: AMIODARONE HCL 200 MG TAB PO SCH (10:57)
[2021-12-12] MEDS: FUROSEMIDE 40 MG/4 ML VIAL IV SCH (11:01)
[2021-12-12] MEDS ORDERED: RIVA20TA PO (12:00)
[2021-12-12] MEDS ORDERED: CARV6.2551 PO (12:00)
[2021-12-12] MEDS ORDERED: AMIO200T33 PO (12:02)
[2021-12-12] MEDS ORDERED: DIGO0.12 PO (12:28)
[2021-12-12] MEDS ORDERED: LORazepam 2MG/ML-1ML VIAL IV PRN (16:45)
[2021-12-12] MEDS ORDERED: LORazepam 0.5 MG TAB PO PRN (17:15)
[2021-12-12] MEDS: ALBUMIN 25% 100 ML IV SCH (17:30)
[2021-12-13] VITALS (7 sets, daily range): BP systolic 90–115; BP diastolic 67–83
[2021-12-13] MEDS: ALBUMIN 25% 100 ML IV SCH ×2 (00:54→09:37)
[2021-12-13] MEDS: PIPERACILLIN-TAZO 4.5GM 100 ML IV SCH ×3 (02:32→17:23)
[2021-12-13] MEDS ORDERED: SIMETHICONE 80 MG CHEWABLE TABLET PO PRN (03:45)
[2021-12-13] MEDS: FAMOTIDINE (10MG/ML) 2ML VL IV SCH ×2 (03:51→20:51)
[2021-12-13] MEDS: SODIUM CHLOR 0.9% PF (SALINE LOCK) 10ML VIAL/SYR IV SCH ×3 (05:35→20:51)
[2021-12-13 05:59] LABS: Basophils # (auto) 0.1 10 ^3/uL (0-0.2); Basophils % (auto) 0.9 % (0.0-2.0); Eosinophils # (auto) 0 10 ^3/uL (0-0.8); Eosinophils % (auto) 0.6 % (0.0-7.0); Hematocrit 38.7 % (41.0-53.0); Lymphocytes % (auto) 17.1 % (10.0-50.0); Mean Corpuscular Hemoglobin 32.1 pg (28.0-32.0); Mean Corpuscular Hgb Conc. 33.5 g/dL (32.0-36.0); Mean Corpuscular Volume 95.9 fL (80.0-100.0); Monocytes # (auto) 0.7 10 ^3/uL (0-1.3); Monocytes % (auto) 11.7 % (0.0-12.0); Neutrophils # (auto) 4.3 10 ^3/uL (1.6-8.6); Neutrophils % (auto) 69.7 % (37.0-80.0); Nucleated Red Blood Cells % 0.2 %; Red Blood Cells 4.04 10^6/uL (4.5-5.90); Red Cell Distribution Width 14.8 % (11.8-14.3); White Blood Cell 6.1 10^3/uL (4.4-10.8)
[2021-12-13 06:10] LABS: INR 1.57 (0.9-1.15); Partial Thromboplastin Time 31.6 sec (24.6-33.4)
[2021-12-13 06:13] LABS: Albumin 3.7 g/dL (3.4-5.0); BUN/Creatinine Ratio 27.4; Calcium 8.3 mg/dL (8.5-10.1); Magnesium 2.6 mg/dL (1.6-2.6); Potassium 4.3 mmol/L (3.5-5.1)
[2021-12-13 06:16] LABS: Bilirubin, Total 1.5 mg/dL (0.2-1.0); Total Protein 6.8 g/dL (6.4-8.2)
[2021-12-13] MEDS: InsuLIN REG 1unit/0.01ml Soln (100units/ml) SC SCH ×4 (06:49→23:59)
[2021-12-13] MEDS: ACCU-CHEK COMFORT CURVE STRIP VI SCH ×4 (06:49→23:58)
[2021-12-14] MEDS: HYDROcodone-ACET 5/325MG TAB PO PRN
[2021-12-14] MEDS: PIPERACILLIN-TAZO 4.5GM 100 ML IV SCH ×3 (01:29→17:48)
[2021-12-14 05:00] VITALS: BP 109/82
[2021-12-14] MEDS: InsuLIN REG 1unit/0.01ml Soln (100units/ml) SC SCH ×3 (06:00→17:48)
[2021-12-14] MEDS: ACCU-CHEK COMFORT CURVE STRIP VI SCH ×3 (06:08→17:49)
[2021-12-14] MEDS: SODIUM CHLOR 0.9% PF (SALINE LOCK) 10ML VIAL/SYR IV SCH ×2 (06:08→14:00)
[2021-12-14 08:00] VITALS: BP 108/74
[2021-12-14 09:00] VITALS: BP 110/87
[2021-12-14] MEDS: FAMOTIDINE (10MG/ML) 2ML VL IV SCH (10:00)
[2021-12-14 13:00] VITALS: BP 102/68
[2021-12-14] MEDS ORDERED: POLYETHYLENE GLYCOL 17 GM PWDR PO ONE (13:15)
[2021-12-14] MEDS ORDERED: LEVO500T31 PO (13:20)
[2021-12-14] MEDS ORDERED: METR500T PO (13:20)
[2021-12-14 14:37] VITALS: BP 113/76
== END 2021-12-14 16:00 | disposition home or self-care (01) ==
LOC: ER 05:55 → TELE 13:07 → TELE-WESTW 16:07
PROVIDERS: ADMIT Internal Medicine; ATTEND Internal Medicine
DX: K81.0 Acute cholecystitis (principal); I50.23 Acute on chronic systolic (congestive) heart failure; I24.9 Acute ischemic heart disease, unspecified; I42.0 Dilated cardiomyopathy; I11.0 Hypertensive heart disease with heart failure; K83.09 Other cholangitis; E11.9 Type 2 diabetes mellitus without complications; J44.9 Chronic obstructive pulmonary disease, unspecified; Z20.822 Contact with and (suspected) exposure to COVID-19; I25.10 Atherosclerotic heart disease of native coronary artery without angina pectoris; I48.91 Unspecified atrial fibrillation; Z95.0 Presence of cardiac pacemaker; Z79.82 Long term (current) use of aspirin; Z79.899 Other long term (current) drug therapy; Z82.49 Family history of ischemic heart disease and other diseases of the circulatory system; Z83.49 Family history of other endocrine, nutritional and metabolic diseases; Z87.891 Personal history of nicotine dependence
CPT/HCPCS: 36415; 71045; 74018; 74176; 74181; 76705; 78226; 80053; 80162; 80307; 81001; 82565; 82962; 83605; 83735; 83880; 84484; 85025; 85610; 85730; 87040; 87081; 93005; 96365; 96375; G0378; J1815; J2405; J2543; J3490; P9047

== ENCOUNTER 2021-12-15 09:19 | Emergency (ER) | payer MEDICAID ==
[~2021-12-15] VITALS: Ht 182.9 cm; Wt 80.0 kg
[~2021-12-15 09:19] MED LIST changes: +AMIO200T33 PO; -AMIO200T4 PO; -ASPI81CH43 PO; -CAR3125T PO; +CARV6.2551 PO; -DIG0125T PO; +DIGO0.12 PO; +LEVO500T31 PO; +METR500T PO; +RIVA20TA PO
[2021-12-15 09:51] VITALS: BP 119/87
== END 2021-12-15 10:10 | disposition left against medical advice (07) ==
LOC: ER 09:19 → EDBD 09:19 → EDUNIT# 09:19 → ER 10:10
DX: R22.43 Localized swelling, mass and lump, lower limb, bilateral (principal); R94.31 Abnormal electrocardiogram [ECG] [EKG]; Z53.21 Procedure and treatment not carried out due to patient leaving prior to being seen by health care provider
CPT/HCPCS: 93005

== ENCOUNTER 2021-12-16 22:23 | Emergency (ER) | payer MEDICAID ==
[~2021-12-16] VITALS: Ht 182.9 cm; Wt 86.0 kg
[2021-12-16 22:23] VITALS: BP 122/88
[2021-12-17] MEDS ORDERED: ONDA-144 PO (06:38)
[2021-12-17] MEDS ORDERED: PERCOT PO (06:38)
== END 2021-12-17 06:55 | disposition home or self-care (01) ==
LOC: ER 22:23
DX: R10.11 Right upper quadrant pain (principal); R14.0 Abdominal distension (gaseous); F17.210 Nicotine dependence, cigarettes, uncomplicated; I11.0 Hypertensive heart disease with heart failure; I50.9 Heart failure, unspecified; E11.9 Type 2 diabetes mellitus without complications; E78.5 Hyperlipidemia, unspecified
CPT/HCPCS: 74176; 93005

== ENCOUNTER 2022-03-17 12:54 | Inpatient (IN) | payer MEDICAID ==
[~2022-03-17] VITALS: Ht 182.9 cm; Wt 91.3 kg
[~2022-03-17 12:54] MED LIST changes: -ATOR20TA PO; +ONDA-144 PO; +PERCOT PO
[2022-03-17] MEDS ORDERED: VANCOMYCIN 1GM/250ML 250 ML IV ONE ×3 (16:00→20:00)
[2022-03-17] MEDS ORDERED: HYDROmorphone HCL 2 MG/ML VL/or syr IV ONE (16:00)
[2022-03-17] MEDS ORDERED: PIPERACILLIN-TAZOB 3.375GM 100 ML IV ONE (16:00)
[2022-03-17 16:59] LABS: Albumin 3.4 g/dL (3.4-5.0); BUN/Creatinine Ratio 14.3; Calcium 8.1 mg/dL (8.5-10.1)
[2022-03-17 17:01] LABS: INR 1.35 (0.9-1.15); Partial Thromboplastin Time 29.4 sec (24.6-33.4)
[2022-03-17 17:02] LABS: Bilirubin, Total 0.8 mg/dL (0.2-1.0); Total Protein 7.2 g/dL (6.4-8.2)
[2022-03-17 17:14] LABS: Basophils # (auto) 0 10 ^3/uL (0-0.2); Basophils % (auto) 0.7 % (0.0-2.0); Eosinophils # (auto) 0.1 10 ^3/uL (0-0.8); Eosinophils % (auto) 2.4 % (0.0-7.0); Hemoglobin 10.1 g/dL (13.5-17.5); Lymphocytes # (auto) 0.6 10 ^3/uL (0.4-5.4); Mean Corpuscular Hemoglobin 30.3 pg (28.0-32.0); Mean Corpuscular Hgb Conc. 33.7 g/dL (32.0-36.0); Monocytes # (auto) 0.4 10 ^3/uL (0-1.3); Monocytes % (auto) 12.3 % (0.0-12.0); Neutrophils # (auto) 2.3 10 ^3/uL (1.6-8.6); Neutrophils % (auto) 66.6 % (37.0-80.0); Nucleated Red Blood Cells % 0.1 %; Red Blood Cells 3.34 10^6/uL (4.5-5.90); Red Cell Distribution Width 16.4 % (11.8-14.3); White Blood Cell 3.5 10^3/uL (4.4-10.8)
[2022-03-17] MEDS ORDERED: CEFTRIAXONE SODIUM 2 GM in D5W 5% 50 ML IV SCH (17:45)
[2022-03-17] MEDS ORDERED: PANTOPRAZOLE 40 MG/10 ML VIAL INJ IV ONE (19:00)
[2022-03-17] MEDS ORDERED: POTASSIUM EFFERVESENT TAB 25 MEQ PO ONE (19:00)
[2022-03-17] MEDS ORDERED: KETOROLAC TROMETH 30 MG/ML 1ML VIAL IV PRN (19:00)
[2022-03-17 19:36] LABS: % Iron Saturation 8.3 % (20-55)
[2022-03-17] MEDS ORDERED: NITROGLYCERIN 0.4 MG SL TAB SL PRN (21:45)
[2022-03-17] MEDS ORDERED: MORPHINE SULFATE INJ 2 MG/ml SYRG IV PRN (21:45)
[2022-03-17] MEDS: BENAZEPRIL HCL 10 MG TAB PO SCH (22:00)
[2022-03-17] MEDS: CARVEDILOL 3.125 MG TAB PO SCH (22:20)
[2022-03-18] MEDS: CEFTRIAXONE SODIUM 2 GM in D5W 5% 50 ML IV SCH ×2 (00:50→10:37)
[2022-03-18 06:51] LABS: Basophils # (auto) 0 10 ^3/uL (0-0.2); Basophils % (auto) 0.4 % (0.0-2.0); Eosinophils # (auto) 0.2 10 ^3/uL (0-0.8); Eosinophils % (auto) 2.1 % (0.0-7.0); Lymphocytes # (auto) 0.4 10 ^3/uL (0.4-5.4); Lymphocytes % (auto) 5.9 % (10.0-50.0); Mean Corpuscular Hemoglobin 30.3 pg (28.0-32.0); Mean Corpuscular Hgb Conc. 33.4 g/dL (32.0-36.0); Mean Corpuscular Volume 90.5 fL (80.0-100.0); Monocytes # (auto) 0.8 10 ^3/uL (0-1.3); Monocytes % (auto) 10.3 % (0.0-12.0); Neutrophils % (auto) 81.3 % (37.0-80.0); Nucleated Red Blood Cells % 0.1 %; Red Blood Cells 2.98 10^6/uL (4.5-5.90); Red Cell Distribution Width 16.2 % (11.8-14.3); White Blood Cell 7.3 10^3/uL (4.4-10.8)
[2022-03-18 06:56] LABS: Potassium 3.4 mmol/L (3.5-5.1)
[2022-03-18 07:02] LABS: BUN/Creatinine Ratio 17.6; Calcium 8.4 mg/dL (8.5-10.1)
[2022-03-18] MEDS ORDERED: DIGOXIN 0.125 MG TAB PO SCH (10:00)
[2022-03-18] MEDS ORDERED: CLOPIDOGREL BISULFATE 75 MG TAB PO SCH (10:00)
[2022-03-18] MEDS ORDERED: AMIODARONE HCL 200 MG TAB PO SCH (10:00)
[2022-03-18] MEDS ORDERED: PANTOPRAZOLE 40 MG/10 ML VIAL INJ IV SCH (10:00)
[2022-03-18] MEDS ORDERED: BUMETANIDE 1 MG TAB PO SCH (10:00)
[2022-03-18] MEDS: VANCOMYCIN 1GM/250ML 250 ML IV SCH ×2 (10:30→18:30)
[2022-03-18] MEDS: BENAZEPRIL HCL 10 MG TAB PO SCH ×3 (10:32→21:46)
[2022-03-18] MEDS: CARVEDILOL 3.125 MG TAB PO SCH ×3 (10:35→21:45)
[2022-03-18] MEDS ORDERED: ONDANSETRON HCL 4 MG/2 ML VIAL IV PRN (11:15)
[2022-03-18 11:30] LABS: Urine Bacteria NONE SEEN /hpf (None Seen); Urine Blood Negative /uL (Negative); Urine Specific Gravity 1.022 (1.001-1.035); Urine WBC 4 /hpf (0 - 3)
[2022-03-18] MEDS ORDERED: VANCOMYCIN PER PHARMACY 0 MG IV SCH (17:15)
[2022-03-18] MEDS ORDERED: RIVAROXABAN 20 MG TAB PO SCH (18:00)
[2022-03-18 18:44] VITALS: BP 101/76
[2022-03-18 20:00] VITALS: BP 118/88
[2022-03-18 22:00] VITALS: BP 118/88
[2022-03-19] MEDS: VANCOMYCIN 1GM/250ML 250 ML IV SCH ×2 (04:12→14:20)
[2022-03-19 05:00] VITALS: BP 102/71
[2022-03-19 08:44] VITALS: BP 135/48
[2022-03-19] MEDS: CEFTRIAXONE SODIUM 2 GM in D5W 5% 50 ML IV SCH (10:48)
[2022-03-19] MEDS ORDERED: GABA100C PO (12:37)
[2022-03-19] MEDS ORDERED: NALO4SPR2 (12:37)
[2022-03-19] MEDS ORDERED: ASPI81CH74 PO (12:37)
[2022-03-19] MEDS ORDERED: TAM04C PO (12:37)
[2022-03-19] MEDS ORDERED: ACET-1156 PO (12:37)
[2022-03-19] MEDS ORDERED: METH500T22 PO (12:37)
[2022-03-19] MEDS ORDERED: WARF5TAB71 PO (12:37)
[2022-03-19] MEDS ORDERED: POTA1TAB61 PO (12:37)
[2022-03-19] MEDS ORDERED: FAMO20TA10 PO (12:37)
[2022-03-19] MEDS ORDERED: FURO1TAB32 PO (12:37)
[2022-03-19] MEDS ORDERED: METO2.5T PO (12:37)
[2022-03-19 12:47] VITALS: BP 93/72
[2022-03-19 16:38] VITALS: BP 92/71
[2022-03-19 22:00] VITALS: BP 96/78
[2022-03-20] MEDS: VANCOMYCIN 1GM/250ML 250 ML IV SCH ×2 (00:36→11:29)
[2022-03-20 05:00] VITALS: BP 106/88
[2022-03-20 07:08] LABS: Albumin 2.9 g/dL (3.4-5.0); BUN/Creatinine Ratio 16.3; Calcium 8.8 mg/dL (8.5-10.1); Phosphorus 2.9 mg/dL (2.5-4.90); Potassium 3.1 mmol/L (3.5-5.1)
[2022-03-20 08:00] VITALS: BP 103/75
[2022-03-20] MEDS ORDERED: POTASSIUM EFFERVESENT TAB 25 MEQ PO ONE (09:00)
[2022-03-20] MEDS: CEFTRIAXONE SODIUM 2 GM in D5W 5% 50 ML IV SCH (09:34)
[2022-03-20 12:00] VITALS: BP 121/102
[2022-03-20 14:46] VITALS: BP 114/80
== END 2022-03-20 17:02 | disposition short-term general hospital (02) | DRG 383 ==
LOC: ER 12:54 → TELE 21:37 → TELE-WESTW 03-18 17:56
PROVIDERS: ADMIT Nurse Practitioner Family; ATTEND Internal Medicine
DX: L03.213 Periorbital cellulitis (principal); Z95.811 Presence of heart assist device; I50.22 Chronic systolic (congestive) heart failure; I11.0 Hypertensive heart disease with heart failure; E11.9 Type 2 diabetes mellitus without complications; E78.5 Hyperlipidemia, unspecified; F17.210 Nicotine dependence, cigarettes, uncomplicated; I25.10 Atherosclerotic heart disease of native coronary artery without angina pectoris; I48.91 Unspecified atrial fibrillation; Z95.0 Presence of cardiac pacemaker; Z82.49 Family history of ischemic heart disease and other diseases of the circulatory system; Z20.822 Contact with and (suspected) exposure to COVID-19; Z79.84 Long term (current) use of oral hypoglycemic drugs
CPT/HCPCS: 36415; 36600; 70486; 71045; 80048; 80053; 80069; 80202; 81001; 82805; 83540; 83550; 83735; 83880; 84132; 84484; 85025; 85610; 85730; 87040; 87426; 93005; 96365; 96367; 96375; C9113; G0378; J0696; J1885; J2543; J7060

== ENCOUNTER 2022-07-20 10:56 | Emergency (ER) | payer MEDICAID ==
[~2022-07-20] VITALS: Ht 185.4 cm; Wt 86.0 kg
[~2022-07-20 10:56] MED LIST changes: +ACET-1156 PO; +ASPI81CH74 PO; +FAMO20TA10 PO; +FURO1TAB32 PO; +GABA100C PO; +METH500T22 PO; +METO2.5T PO; +NALO4SPR2; +POTA1TAB61 PO; +TAM04C PO; +WARF5TAB71 PO
[2022-07-20 11:27] LABS: Basophils # (auto) 0 10 ^3/uL (0-0.2); Basophils % (auto) 0.6 % (0.0-2.0); Eosinophils # (auto) 0.2 10 ^3/uL (0-0.8); Eosinophils % (auto) 3.6 % (0.0-7.0); Hemoglobin 14.2 g/dL (13.5-17.5); Lymphocytes # (auto) 0.6 10 ^3/uL (0.4-5.4); Mean Corpuscular Hemoglobin 31.7 pg (28.0-32.0); Mean Corpuscular Hgb Conc. 34.6 g/dL (32.0-36.0); Mean Corpuscular Volume 91.6 fL (80.0-100.0); Monocytes # (auto) 0.4 10 ^3/uL (0-1.3); Monocytes % (auto) 7.9 % (0.0-12.0); Neutrophils # (auto) 3.3 10 ^3/uL (1.6-8.6); Neutrophils % (auto) 73.9 % (37.0-80.0); Nucleated Red Blood Cells % 0.4 %; Red Blood Cells 4.48 10^6/uL (4.5-5.90); Red Cell Distribution Width 18.4 % (11.8-14.3); White Blood Cell 4.5 10^3/uL (4.4-10.8)
[2022-07-20 11:42] LABS: INR 1.57 (0.9-1.15); Partial Thromboplastin Time 31.7 sec (24.6-33.4)
[2022-07-20] MEDS ORDERED: FUROSEMIDE 40 MG/4 ML VIAL IV ONE (11:45)
[2022-07-20 12:07] LABS: Albumin 3.9 g/dL (3.4-5.0); Calcium 9.1 mg/dL (8.5-10.1); Magnesium 2.3 mg/dL (1.6-2.6)
[2022-07-20 12:10] LABS: BUN/Creatinine Ratio 29.2; Bilirubin, Total 0.7 mg/dL (0.2-1.0); Total Protein 8.3 g/dL (6.4-8.2)
[2022-07-20] MEDS ORDERED: POTASSIUM CHL 20MEQ/100ML 100 ML IV ONE (12:30)
[2022-07-20] MEDS ORDERED: POTASSIUM CHL 20 Meq TABLET PO ONE (12:30)
[2022-07-20 12:33] LABS: Potassium 2.7 mmol/L (3.5-5.1)
[2022-07-20 14:54] LABS: Urine Blood Negative /uL (Negative); Urine Specific Gravity 1.011 (1.001-1.035)
[2022-07-20 22:06] VITALS: BP 114/72
== END 2022-07-21 00:39 | disposition short-term general hospital (02) ==
LOC: EDBD 10:56 → ER 10:56
DX: I24.9 Acute ischemic heart disease, unspecified (principal); E87.6 Hypokalemia; E87.1 Hypo-osmolality and hyponatremia; I11.0 Hypertensive heart disease with heart failure; I50.9 Heart failure, unspecified; I25.2 Old myocardial infarction; I25.10 Atherosclerotic heart disease of native coronary artery without angina pectoris; F17.210 Nicotine dependence, cigarettes, uncomplicated; Z95.811 Presence of heart assist device; Z95.0 Presence of cardiac pacemaker; Z79.82 Long term (current) use of aspirin; Z79.899 Other long term (current) drug therapy; Z79.01 Long term (current) use of anticoagulants; Z20.822 Contact with and (suspected) exposure to COVID-19
CPT/HCPCS: 36415; 71045; 80053; 81003; 83735; 83880; 84484; 85025; 85610; 85730; 87426; 93005; 96365; 96366; 99285; J3480; J7030

== ENCOUNTER 2023-02-11 06:06 | Emergency (ER) | payer MEDICAID ==
[~2023-02-11] VITALS: Ht 182.9 cm; Wt 90.9 kg
[~2023-02-11 06:06] MED LIST changes: -ACET-1156 PO; +ACET-1881 PO; -BENA10TA14 PO; +BENA10TA16 PO; +METH-1181 PO; -METH500T22 PO; -TAM04C PO; +TAMS-35 PO; +WARF-66 PO; -WARF5TAB71 PO
[2023-02-11 06:52] LABS: Basophils # (auto) 0 10 ^3/uL (0-0.2); Basophils % (auto) 0.8 % (0.0-2.0); Eosinophils # (auto) 0.3 10 ^3/uL (0-0.8); Eosinophils % (auto) 5.2 % (0.0-7.0); Hematocrit 43.6 % (41.0-53.0); Hemoglobin 15.3 g/dL (13.5-17.5); Lymphocytes # (auto) 0.8 10 ^3/uL (0.4-5.4); Lymphocytes % (auto) 16.4 % (10.0-50.0); Mean Corpuscular Hemoglobin 32.6 pg (28.0-32.0); Mean Corpuscular Hgb Conc. 35.1 g/dL (32.0-36.0); Mean Corpuscular Volume 92.6 fL (80.0-100.0); Monocytes # (auto) 0.6 10 ^3/uL (0-1.3); Monocytes % (auto) 12.2 % (0.0-12.0); Neutrophils # (auto) 3.2 10 ^3/uL (1.6-8.6); Neutrophils % (auto) 65.4 % (37.0-80.0); Nucleated Red Blood Cells % 0.3 %; Red Blood Cells 4.71 10^6/uL (4.5-5.90); Red Cell Distribution Width 12.8 % (11.8-14.3); White Blood Cell 4.9 10^3/uL (4.4-10.8)
[2023-02-11 07:01] LABS: INR 2.7 (0.9-1.15); Partial Thromboplastin Time 45.2 SEC (24.5-34.5); Prothrombin Time 26.6 sec (9.3-11.8)
[2023-02-11 07:07] LABS: Alanine Aminotransferase 30 U/L (7-40); Albumin 5.3 g/dL (3.2-4.8); Alkaline Phosphatase 66 U/L (46-116); Anion Gap 8 (5-15); Aspartate Aminotransferase 24 U/L (13-40); BUN/Creatinine Ratio 17.6 (10.0-20.0); Bilirubin, Total 0.7 mg/dL (0.2-1.0); Blood Urea Nitrogen 33 mg/dL (9-23); Calcium 9.4 mg/dL (8.7-10.4); Carbon Dioxide 26 mmol/L (20-30); Chloride 96 mmol/L (98-107); Glucose 109 mg/dL (74-106); Magnesium 2.2 mg/dL (1.6-2.6); Potassium 3.4 mmol/L (3.5-5.1); Sodium 130 mmol/L (136-145); Total Protein 7.9 g/dL (5.7-8.2)
[2023-02-11 07:55] VITALS: PULSE 50; RESP 17; O2SAT 93
[2023-02-11] MEDS ORDERED: SODIUM CHLORIDE 0.9% 250 ML IV ONE (10:30)
[2023-02-11 11:21] VITALS: PULSE 51; RESP 18; TEMP 98; O2SAT 93
== END 2023-02-11 11:29 | disposition short-term general hospital (02) ==
LOC: ER 06:06 → EDBD 06:06 → ER 11:29
DX: I11.0 Hypertensive heart disease with heart failure (principal); I50.9 Heart failure, unspecified; I25.2 Old myocardial infarction; I25.10 Atherosclerotic heart disease of native coronary artery without angina pectoris; F17.210 Nicotine dependence, cigarettes, uncomplicated; Z95.0 Presence of cardiac pacemaker; Z79.82 Long term (current) use of aspirin; Z79.2 Long term (current) use of antibiotics; Z79.899 Other long term (current) drug therapy
CPT/HCPCS: 36415; 71045; 80053; 83735; 83880; 84484; 85025; 85610; 85730; 93005; 99285; J7050

== ENCOUNTER 2023-02-27 10:34 | Emergency (ER) | payer MEDICAID ==
[~2023-02-27] VITALS: Ht 182.9 cm; Wt 88.6 kg
[2023-02-27 10:39] VITALS: BP_DIAS 88
[2023-02-27 11:00] VITALS: PULSE 70; RESP 18; TEMP 98.1; O2SAT 98
[2023-02-27 11:22] LABS: Basophils # (auto) 0 10 ^3/uL (0-0.2); Basophils % (auto) 0.7 % (0.0-2.0); Eosinophils # (auto) 0.1 10 ^3/uL (0-0.8); Eosinophils % (auto) 3.3 % (0.0-7.0); Hematocrit 39.9 % (41.0-53.0); Lymphocytes # (auto) 0.6 10 ^3/uL (0.4-5.4); Lymphocytes % (auto) 15.4 % (10.0-50.0); Mean Corpuscular Hemoglobin 32.6 pg (28.0-32.0); Mean Corpuscular Hgb Conc. 35.2 g/dL (32.0-36.0); Mean Corpuscular Volume 92.8 fL (80.0-100.0); Monocytes # (auto) 0.5 10 ^3/uL (0-1.3); Monocytes % (auto) 11.8 % (0.0-12.0); Neutrophils # (auto) 2.8 10 ^3/uL (1.6-8.6); Neutrophils % (auto) 68.8 % (37.0-80.0); Nucleated Red Blood Cells % 0.1 %; Red Cell Distribution Width 13.1 % (11.8-14.3); White Blood Cell 4.1 10^3/uL (4.4-10.8)
[2023-02-27 11:38] LABS: INR 1.92 (0.9-1.15); Partial Thromboplastin Time 37.8 SEC (24.5-34.5); Prothrombin Time 19.3 sec (9.3-11.8)
[2023-02-27 11:44] LABS: Alanine Aminotransferase 28 U/L (7-40); Albumin 4.3 g/dL (3.2-4.8); Alkaline Phosphatase 62 U/L (46-116); Anion Gap 5 (5-15); Aspartate Aminotransferase 26 U/L (13-40); BUN/Creatinine Ratio 14.1 (10.0-20.0); Bilirubin, Total 0.4 mg/dL (0.2-1.0); Blood Urea Nitrogen 12 mg/dL (9-23); Calcium 8.9 mg/dL (8.7-10.4); Carbon Dioxide 24 mmol/L (20-30); Chloride 107 mmol/L (98-107); Glucose 108 mg/dL (74-106); Potassium 4.1 mmol/L (3.5-5.1); Sodium 136 mmol/L (136-145); Total Protein 6.7 g/dL (5.7-8.2)
[2023-02-27 13:13] VITALS: BP_SYST 112; PULSE 70; RESP 17; O2SAT 97
[2023-02-27 13:29] LABS: Urine Bacteria NONE SEEN /hpf (None Seen); Urine Blood Negative /uL (Negative); Urine Clarity Clear (Clear); Urine Color Colorless (Yellow); Urine Protein, UAD Negative (Negative); Urine Specific Gravity 1.007 (1.001-1.035); Urine Urobilinogen Normal (Negative); Urine WBC <1 /hpf (0 - 3)
== END 2023-02-27 13:23 | disposition home or self-care (01) ==
LOC: ER 10:34
DX: R04.0 Epistaxis (principal); R42 Dizziness and giddiness; F17.210 Nicotine dependence, cigarettes, uncomplicated; I11.0 Hypertensive heart disease with heart failure; I50.9 Heart failure, unspecified; I25.2 Old myocardial infarction
CPT/HCPCS: 36415; 71045; 80053; 81001; 84484; 85025; 85610; 85730; 93005